=== PATIENT | female | born 1990 | race Caucasian/White ===

== ENCOUNTER 2021-04-13 17:17 | Emergency (ER) | payer MEDICAID ==
[~2021-04-13] VITALS: Ht 165.1 cm; Wt 118.2 kg
[~2021-04-13 17:17] MED LIST: ATARAX 25MG25 MG/TAB PO; IMPLANON68 MG ID; MEDROL 4MG DOSPA4 MG PO; PERCOCET 325 MG1 TA2 PO; PHENERGAN 25 TA25 MG PO; ZANTAC 150MG T150 MG PO
[2021-04-13 18:28] LABS: BASO # 0.1 (0.0-0.2); BASO % 1.5 % (0.0-2.0); EOS # 0.2 (0.0-0.7); EOS % 3.3 % (0-4.0); GRAN # 4.2 (1.4-6.5); GRAN % 62.9 % (42.2-75.2); HEMATOCRIT 43.7 % (37.0-47.0); HEMOGLOBIN 14.8 g/dl (12.5-16.0); LYMPH # 1.7 (1.2-3.4); LYMPH % 25.6 % (20.0-51.0); MEAN CELL VOLUME 89 fl (80.0-100.0); MEAN CORPUSCULAR HEMOGLOBIN 30 pg (27.0-31.0); MEAN CORPUSCULAR HGB CONC 34 g/dl (33.0-37.0); MEAN PLATELET VOLUME 10.6 fl (7.4-10.4); MONO # 0.4 (0.1-0.6); MONO % 6.4 % (1.7-9.3); PLATELET COUNT 405 K/mm3 (130-400)
[2021-04-13 18:38] LABS: ALBUMIN 4.3 gm/dL (3.5-5.0); BILIRUBIN,TOTAL 0.7 mg/dL (0.0-1.0); CALCIUM 9.5 mg/dL (8.4-10.2); CREATININE, serum 0.68 (0.52-1.25); POTASSIUM 4.2 mmol/L (3.4-5.0)
[2021-04-13 20:00] VITALS: BP 140/88; PULSE 76; TEMP 98.2
== END 2021-04-13 20:00 | disposition home or self-care (01) ==
LOC: COL.ER 17:17
PROVIDERS: Physician Assistant
DX: G43.909 Migraine, unspecified, not intractable, without status migrainosus (principal); I10 Essential (primary) hypertension; Z88.8 Allergy status to other drugs, medicaments and biological substances
CPT/HCPCS: J1200; J2550; J2765; J7030

== ENCOUNTER 2021-08-23 19:47 | Emergency (ER) | payer MEDICAID ==
[~2021-08-23] VITALS: Ht 165.1 cm; Wt 113.6 kg
[2021-08-23 20:26] VITALS: TEMP 98.3
[2021-08-23] MEDS ORDERED: FLEXERIL 1010 MG/TAB PO (21:14)
[2021-08-23] MEDS ORDERED: MEDROL 4MG DOSPA4 MG PO (21:14)
[2021-08-23] MEDS ORDERED: NORCO 325 MG-51 TAB PO (21:14)
[2021-08-23 21:29] VITALS: BP 124/78; PULSE 76
== END 2021-08-23 21:29 | disposition home or self-care (01) ==
LOC: COL.ER 19:47
DX: M54.16 Radiculopathy, lumbar region (principal); M54.42 Lumbago with sciatica, left side; I10 Essential (primary) hypertension
CPT/HCPCS: J1885

== ENCOUNTER 2022-02-05 21:47 | Emergency (ER) | payer MEDICAID ==
[~2022-02-05] VITALS: Ht 165.1 cm; Wt 118.2 kg
[~2022-02-05 21:47] MED LIST changes: +FLEXERIL 1010 MG/TAB PO; +NORCO 325 MG-51 TAB PO
[2022-02-05 22:12] VITALS: BP 137/77; PULSE 110
[2022-02-05 23:58] VITALS: TEMP 98.7
== END 2022-02-05 23:58 | disposition home or self-care (01) ==
LOC: COL.ER 21:47
DX: J10.1 Influenza due to other identified influenza virus with other respiratory manifestations (principal); R00.0 Tachycardia, unspecified; Z20.822 Contact with and (suspected) exposure to COVID-19

== ENCOUNTER → 2023-11-08 | Outpatient (CLI) | payer BC ==
[~2023-11-08] MED LIST changes: +BACTRIM DS 8001 TAB PO; +TYLENOL W/COD1 UDTAB PO
== END ==
LOC: COL.RAD 15:00
DX: C18.1 Malignant neoplasm of appendix (principal)
CPT/HCPCS: Q9967